=== PATIENT | female | born 1975 | race Two or more races ===

== ENCOUNTER 2019-07-06 20:03 | Emergency (ER) | payer MEDICAID ==
[~2019-07-06] VITALS: Ht 154.9 cm; Wt 47.2 kg
[2019-07-06 20:30] LABS: BASOPHIL % 0.2 % (0-2); PLATELET COUNT 293 x10^3mcL (130-400); RED CELL DISTRIBUTION WIDTH 12.3 % (11.5-14.5)
[2019-07-06 20:37] LABS: CALCIUM 9.2 mg/dL (8.5-10.1); CARBON DIOXIDE 29.5 mmol/L (21-32); CHLORIDE SERUM 103 mmol/L (98-107); CREATININE SERUM 0.6 mg/dL (0.6-1.0); GFR1 > 60 mL/min; GLUCOSE SERUM 93 mg/dL (74-106); POTASSIUM SERUM 4.2 mmol/L (3.5-5.1); SODIUM SERUM 142 mmol/L (136-145)
[2019-07-06 20:45] LABS: ALBUMIN 4.5 g/dL (3.4-5.0); ALKALINE PHOSPHATASE 67 U/L (46-116); ALT/SGPT 37 U/L (14-59); AST/SGOT 20 U/L (15-37); BILIRUBIN TOTAL 0.5 mg/dL (0.20-1.00)
[2019-07-06 20:46] LABS: TOTAL PROTEIN, SERUM 8.3 g/dL (6.4-8.2)
[2019-07-07 00:35] VITALS: BP 125/55
== END 2019-07-07 00:35 | disposition home or self-care (01) ==
LOC: ED 20:03
DX: M54.9 Dorsalgia, unspecified (principal); N34.2 Other urethritis
CPT/HCPCS: 36415; Q0092